=== PATIENT | female | born 1995 | race Caucasian/White ===

== ENCOUNTER 2020-12-17 10:15 | Emergency (ER) | payer MEDICAID, OTHER ==
[~2020-12-17] VITALS: Ht 157.5 cm; Wt 42.0 kg
[2020-12-17] MEDS ORDERED: SODIUM CHLORIDE 0.9% 1,000 ML IV ONE (10:30)
[2020-12-17 11:18] LABS: CHLORIDE 106 mEq/L (98-107)
[2020-12-17 11:19] LABS: HCG SCREEN NEGATIVE
[2020-12-17 11:23] LABS: CLARITY URINE CLOUDY (CLEAR); COLOR URINE YELLOW (YELLOW); KETONES URINE NEGATIVE (NEGATIVE); LEUKOCYTE ESTERASE URINE 1+ (NEGATIVE); NITRITE URINE NEGATIVE (NEGATIVE); OCCULT BLOOD URINE NEGATIVE (NEGATIVE); PH URINE 6.5 (4.5-8.0); PROTEIN URINE NEGATIVE (NEGATIVE)
[2020-12-17 11:23] LABS: ETHANOL BLOOD < 10 mg/dL; PROTHROMBIN TIME 10.7 sec (9.6-11.0)
[2020-12-17 11:26] LABS: BASOPHILS % 0.3 % (0.0-2.0); EOSINOPHILS % 1.4 % (0.0-5.0); HEMATOCRIT. 43.5 % (36.0-48.0); HEMOGLOBIN. 14.6 g/dL (12.0-16.0); MEAN CORPUSCULAR HEMOGLOBIN 29.3 pg (28.0-32.0); MEAN CORPUSCULAR VOLUME 87.5 fL (81.0-99.0); MEAN PLATELET VOLUME 9.3 fl (7.4-10.4); NEUTROPHILS % 70.3 % (40.0-76.0); PLATELET 185 x1000/uL (130-400); RED BLOOD CELL COUNT 4.97 mill/uL (4.2-5.4); RED CELL DISTRIBUTION WIDTH 12.7 % (11.6-14.6)
[2020-12-17 11:44] LABS: *AMPHETAMINES SCREEN URINE NEGATIVE (NEGATIVE); *BARBITURATES SCREEN URINE NEGATIVE (NEGATIVE); *BENZODIAZEPINES SCREEN URINE NEGATIVE (NEGATIVE); *COCAINE SCREEN URINE NEGATIVE (NEGATIVE)
[2020-12-17] MEDS ORDERED: CEPH500C2 MT (11:44)
[2020-12-17 11:45] LABS: CANNABINOID URINE SCREEN NEGATIVE (NEGATIVE); METHADONE URINE SCREEN NEGATIVE (NEGATIVE); OPIATES URINE SCREEN NEGATIVE (NEGATIVE); PHENCYCLIDINE URINE SCREEN NEGATIVE (NEGATIVE)
[2020-12-17] MEDS ORDERED: CEFTRIAXONE 1 G PREMIX 50 ML IV ONE (11:45)
[2020-12-17 16:45] VITALS: BP 95/47
== END 2020-12-17 17:04 | disposition home or self-care (01) ==
LOC: ER 10:15
DX: N39.0 Urinary tract infection, site not specified (principal)
CPT/HCPCS: 36415; 71045; 80053; 80305; 80320; 81003; 83605; 83690; 83880; 84484; 84703; 85025; 85610; 86850; 86900; 86901; 93005; 96361; 96365; 96366; 99285; J0696; J7030; Z7610; G0480

== ENCOUNTER 2021-02-08 11:34 | Emergency (ER) | payer OTHER, MEDICAID ==
[~2021-02-08] VITALS: Ht 157.5 cm; Wt 39.0 kg
[~2021-02-08 11:34] MED LIST: CEPH500C2 MT
[2021-02-08] MEDS ORDERED: SODIUM CHLORIDE 0.9% 1,000 ML IV ONE (13:45)
[2021-02-08] MEDS ORDERED: METOCLOPRAMIDE HCL 10MG/2ML VIAL IV ONE (13:45)
[2021-02-08] MEDS ORDERED: FAMOTIDINE 20MG TABLET PO ONE (14:45)
[2021-02-08] MEDS ORDERED: DIPHENHYDRAMINE 12.5MG/5ML UDC PO ONE (14:45)
[2021-02-08] MEDS ORDERED: METOCLOPRAMIDE HCL 5MG TABLET PO ONE (14:45)
[2021-02-08 14:48] LABS: BASOPHILS % 0.6 % (0.0-2.0); EOSINOPHILS % 0.8 % (0.0-5.0); HEMATOCRIT. 47.6 % (36.0-48.0); HEMOGLOBIN. 16.2 g/dL (12.0-16.0); LYMPHOCYTES % 24.2 % (20.0-50.0); MEAN CORPUSCULAR HEMOGLOBIN 29.8 pg (28.0-32.0); MEAN CORPUSCULAR VOLUME 87.6 fL (81.0-99.0); MEAN PLATELET VOLUME 8.8 fl (7.4-10.4); MONOCYTES % 5.5 % (2.0-8.0); NEUTROPHILS % 68.9 % (40.0-76.0); PLATELET 226 x1000/uL (130-400); RED BLOOD CELL COUNT 5.44 mill/uL (4.2-5.4); RED CELL DISTRIBUTION WIDTH 12.2 % (11.6-14.6)
[2021-02-08 14:48] LABS: CLARITY URINE CLEAR (CLEAR); COLOR URINE YELLOW (YELLOW); KETONES URINE 2+ (NEGATIVE); LEUKOCYTE ESTERASE URINE NEGATIVE (NEGATIVE); NITRITE URINE NEGATIVE (NEGATIVE); OCCULT BLOOD URINE TRACE (NEGATIVE); PH URINE 5.5 (4.5-8.0); PROTEIN URINE TRACE (NEGATIVE); SPECIFIC GRAVITY URINE 1.024 (1.005-1.030); UROBILINOGEN URINE 0.2 E.U./dL (0.2-1.0)
[2021-02-08 14:54] LABS: CHLORIDE 106 mEq/L (98-107)
[2021-02-08 14:57] LABS: HCG SCREEN NEGATIVE
[2021-02-08 14:58] LABS: INR 1.1; PROTHROMBIN TIME 11.4 sec (9.6-11.0)
[2021-02-08 15:21] LABS: *AMPHETAMINES SCREEN URINE NEGATIVE (NEGATIVE); *BARBITURATES SCREEN URINE NEGATIVE (NEGATIVE); *BENZODIAZEPINES SCREEN URINE NEGATIVE (NEGATIVE); *COCAINE SCREEN URINE NEGATIVE (NEGATIVE); CANNABINOID URINE SCREEN NEGATIVE (NEGATIVE); METHADONE URINE SCREEN NEGATIVE (NEGATIVE); OPIATES URINE SCREEN NEGATIVE (NEGATIVE)
[2021-02-08 15:22] LABS: PHENCYCLIDINE URINE SCREEN NEGATIVE (NEGATIVE)
[2021-02-08] MEDS ORDERED: CEPHALEXIN 250MG CAPSULE PO NR (16:30)
[2021-02-08] MEDS ORDERED: CEPH500C2 MT (16:34)
[2021-02-08] MEDS ORDERED: ONDA4TAB5 MT (16:34)
[2021-02-08 17:18] VITALS: BP 121/55
== END 2021-02-08 17:18 | disposition home or self-care (01) ==
LOC: ER 11:34
DX: R82.71 Bacteriuria (principal); Z98.890 Other specified postprocedural states
CPT/HCPCS: 36415; 80053; 80305; 81003; 81025; 83690; 84703; 85025; 85610; 99284; J7030; J8597; Q0163

== ENCOUNTER 2021-02-17 11:08 | Emergency (ER) | payer OTHER, MEDICAID ==
[~2021-02-17] VITALS: Ht 162.6 cm; Wt 44.0 kg
[~2021-02-17 11:08] MED LIST changes: +ONDA4TAB5 MT
[2021-02-17] MEDS ORDERED: SODIUM CHLORIDE 0.9% 1,000 ML IV ONE (13:15)
[2021-02-17 13:25] LABS: CLARITY URINE CLEAR (CLEAR); COLOR URINE YELLOW (YELLOW); KETONES URINE 1+ (NEGATIVE); LEUKOCYTE ESTERASE URINE NEGATIVE (NEGATIVE); NITRITE URINE NEGATIVE (NEGATIVE); OCCULT BLOOD URINE TRACE (NEGATIVE); PH URINE 6.5 (4.5-8.0); PROTEIN URINE TRACE (NEGATIVE); SPECIFIC GRAVITY URINE 1.012 (1.005-1.030)
[2021-02-17 14:32] LABS: BASOPHILS % 0.4 % (0.0-2.0); EOSINOPHILS % 0.1 % (0.0-5.0); HEMATOCRIT. 40.6 % (36.0-48.0); HEMOGLOBIN. 14.2 g/dL (12.0-16.0); LYMPHOCYTES % 13.6 % (20.0-50.0); MEAN CORPUSCULAR HEMOGLOBIN 30.4 pg (28.0-32.0); MEAN CORPUSCULAR VOLUME 87.3 fL (81.0-99.0); MEAN PLATELET VOLUME 8.9 fl (7.4-10.4); NEUTROPHILS % 78.9 % (40.0-76.0); PLATELET 201 x1000/uL (130-400); RED BLOOD CELL COUNT 4.66 mill/uL (4.2-5.4); RED CELL DISTRIBUTION WIDTH 12.3 % (11.6-14.6)
[2021-02-17 14:39] LABS: CHLORIDE 107 mEq/L (98-107)
[2021-02-17 14:43] LABS: ETHANOL BLOOD < 10 mg/dL
[2021-02-17 23:50] VITALS: BP 110/71
== END 2021-02-17 23:57 | disposition home or self-care (01) ==
LOC: ER 11:08
DX: R53.1 Weakness (principal); R45.851 Suicidal ideations; Z20.822 Contact with and (suspected) exposure to COVID-19; Z87.440 Personal history of urinary (tract) infections
CPT/HCPCS: 36415; 80053; 80307; 80320; 80329; 81003; 81025; 83690; 85025; 93005; 96360; 96361; 99284; C9803; J7030; U0003; U0005; Z7610; G0480

== ENCOUNTER 2021-02-26 11:16 | Emergency (ER) | payer MEDICAID, OTHER ==
[~2021-02-26] VITALS: Ht 152.4 cm; Wt 62.0 kg
[2021-02-26 13:02] LABS: CLARITY URINE CLOUDY (CLEAR); COLOR URINE YELLOW (YELLOW); KETONES URINE NEGATIVE (NEGATIVE); LEUKOCYTE ESTERASE URINE TRACE (NEGATIVE); NITRITE URINE NEGATIVE (NEGATIVE); OCCULT BLOOD URINE 2+ (NEGATIVE); PROTEIN URINE NEGATIVE (NEGATIVE); SPECIFIC GRAVITY URINE 1.021 (1.005-1.030); UROBILINOGEN URINE 0.2 E.U./dL (0.2-1.0)
[2021-02-26 13:14] LABS: BASOPHILS % 0.6 % (0.0-2.0); EOSINOPHILS % 1.8 % (0.0-5.0); HEMATOCRIT. 42.6 % (36.0-48.0); HEMOGLOBIN. 14.7 g/dL (12.0-16.0); MEAN CORPUSCULAR HEMOGLOBIN 30.3 pg (28.0-32.0); MEAN CORPUSCULAR VOLUME 87.9 fL (81.0-99.0); MEAN PLATELET VOLUME 9.2 fl (7.4-10.4); MONOCYTES % 7.8 % (2.0-8.0); NEUTROPHILS % 59.8 % (40.0-76.0); PLATELET 199 x1000/uL (130-400); RED BLOOD CELL COUNT 4.85 mill/uL (4.2-5.4); RED CELL DISTRIBUTION WIDTH 12.7 % (11.6-14.6)
[2021-02-26 13:32] LABS: CHLORIDE 107 mEq/L (98-107)
[2021-02-26 13:35] LABS: ETHANOL BLOOD < 10 mg/dL
[2021-02-26 13:36] LABS: OPIATES URINE SCREEN NEGATIVE (NEGATIVE); PHENCYCLIDINE URINE SCREEN NEGATIVE (NEGATIVE)
[2021-02-26 13:39] LABS: *BARBITURATES SCREEN URINE NEGATIVE (NEGATIVE)
[2021-02-26 13:40] LABS: *BENZODIAZEPINES SCREEN URINE NEGATIVE (NEGATIVE)
[2021-02-26 13:48] LABS: METHADONE URINE SCREEN NEGATIVE (NEGATIVE)
[2021-02-26 13:49] LABS: *COCAINE SCREEN URINE NEGATIVE (NEGATIVE)
[2021-02-26 13:51] LABS: *AMPHETAMINES SCREEN URINE NEGATIVE (NEGATIVE); CANNABINOID URINE SCREEN NEGATIVE (NEGATIVE)
[2021-02-27 16:28] LABS: HCG SCREEN NEGATIVE
[2021-02-28 14:46] VITALS: BP 145/77
== END 2021-02-28 14:50 ==
LOC: ER 11:16
DX: R45.851 Suicidal ideations (principal); Z20.822 Contact with and (suspected) exposure to COVID-19; Z98.890 Other specified postprocedural states
CPT/HCPCS: 36415; 71045; 80053; 80305; 80307; 80320; 80329; 81003; 81025; 82962; 85025; 99285; C9803; U0003; U0005; G0480

== ENCOUNTER 2025-07-31 08:26 | Emergency (ER) | payer MEDICAID, OTHER ==
[~2025-07-31] VITALS: Ht 162.6 cm; Wt 66.0 kg
[2025-07-31 08:36] VITALS: O2SAT 97
[2025-07-31] MEDS: ACETAMINOPHEN 325MG TABLET PO ONE (11:23)
[2025-07-31 11:42] LABS: BASOPHILS % 0.3 % (0.0-2.0); EOSINOPHILS % 0.6 % (0.0-5.0); HEMATOCRIT. 35.7 % (36.0-48.0); HEMOGLOBIN. 12.1 g/dL (12.0-16.0); LYMPHOCYTES % 20.4 % (20.0-50.0); MEAN PLATELET VOLUME 8.2 fl (7.4-10.4); MONOCYTES % 5.8 % (2.0-8.0); NEUTROPHILS % 72.9 % (40.0-76.0); PLATELET 289 x1000/uL (130-400); RED BLOOD CELL COUNT 4.22 mill/uL (4.2-5.4); RED CELL DISTRIBUTION WIDTH 12.6 % (11.6-14.6)
[2025-07-31 12:04] LABS: CREATININE 0.7 mg/dL (0.6-1.0); UREA NITROGEN BLOOD 7 mg/dL (9-23)
[2025-07-31 12:09] LABS: HCG SCREEN NEGATIVE
[2025-07-31] MEDS ORDERED: DEXAMETHASONE 0.5MG/5ML ORAL SYR PO ONE (15:30)
[2025-07-31] MEDS: DEXAMETHASONE 4MG TABLET PO SCH (15:40)
[2025-07-31 15:46] VITALS: BP 120/67; PULSE 94; RESP 18; TEMP 36.8; O2SAT 100
[2025-07-31] MEDS ORDERED: AMOX1TAB16 MT (15:53)
[2025-07-31] MEDS ORDERED: IBUP-1455 MT (15:53)
== END 2025-07-31 15:59 | disposition home or self-care (01) ==
LOC: ER 09:42
DX: R59.1 Generalized enlarged lymph nodes (principal); Z79.899 Other long term (current) drug therapy
CPT/HCPCS: 99284; 80048; 81025; 84703; 85025; 36415; 70360; 76536; J8540